=== PATIENT | female | born 1990 | race Caucasian/White ===

== ENCOUNTER → 2023-03-18 | Outpatient (CLI) | payer OTHER ==
[2023-03-18 16:13] LABS: BASO % 0.2 % (0.0-1.0); EOS % 0.5 % (0.0-3.0); HEMATOCRIT 39.3 % (36.0-47.0); HEMOGLOBIN 13.1 g/dl (12.0-15.5); LYMPH # 1.9 10^3/uL (1.5-5.0); LYMPH % 22.8 % (24.0-44.0); MEAN CORPUSCULAR HEMOGLOBIN 30.1 pg (27.0-33.0); MEAN CORPUSCULAR HGB CONC 33.3 g/dl (32.0-36.5); MEAN CORPUSCULAR VOLUME 90.3 fl (80.0-96.0); MONO # 0.5 10^3/uL (0.0-0.8); MONO % 6.1 % (2.0-8.0); NEUTROPHILS # 5.7 10^3/uL (1.5-8.5); PLATELET COUNT, AUTOMATED 310 10^3/uL (150-450); RED BLOOD COUNT 4.35 10^6/uL (4.00-5.40); WHITE BLOOD COUNT 8.2 10^3/uL (4.0-10.0)
[2023-03-18 16:36] LABS: THYROID STIMULATING HORMONE 0.764 uIU/ML (0.55-4.78)
[2023-03-18 16:37] LABS: ALKALINE PHOSPHATASE 81 U/L (46-116); ALT/SGPT 18 U/L (7.0-40); AST/SGOT 14 U/L (<34); BILIRUBIN,TOTAL 0.5 MG/DL (0.3-1.2); BLOOD UREA NITROGEN 13 MG/DL (9-23); CARBON DIOXIDE LEVEL 26 MMOL/L (20-31); CHLORIDE LEVEL 107 MMOL/L (98-107); CHOLESTEROL LEVEL 167 MG/DL (<200); CHOLESTEROL RISK RATIO 3.28 (<5); CREATININE FOR GFR 0.71 MG/DL (0.55-1.30); GLOMERULAR FILTRATION RATE > 60.0 (>60); GLUCOSE, FASTING 68 MG/DL (60-100); HDL CHOLESTEROL 50.8 MG/DL (>40); LDL CHOLESTEROL 88.8 MG/DL (<100); NON-HDL-C 116.2 MG/DL; POTASSIUM SERUM 4.7 MMOL/L (3.5-5.1); SODIUM LEVEL 141 MMOL/L (136-145); TOTAL PROTEIN 7.2 G/DL (5.7-8.2); TRIGLYCERIDES LEVEL 137 MG/DL (<150)
[2023-03-18 17:21] LABS: HEMOGLOBIN A1c 4.4 % (4.0-6.0)
== END ==
LOC: M PLAIMG 12:31
PROVIDERS: ATTEND Nurse Practitioner Adult Health
DX: Z13.220 Encounter for screening for lipoid disorders (principal); Z13.29 Encounter for screening for other suspected endocrine disorder; Z13.0 Encounter for screening for diseases of the blood and blood-forming organs and certain disorders involving the immune mechanism; M77.32 Calcaneal spur, left foot

== ENCOUNTER → 2024-01-14 | Outpatient (CLI) | payer OTHER ==
[2024-01-14 17:56] LABS: HEPATITIS B SURFACE ANTIGEN NEGATIVE (NEGATIVE)
[2024-01-14 18:07] LABS: HIV 1&2 SCREEN NEGATIVE (NEGATIVE)
[2024-01-14 18:15] LABS: HEPATITIS C VIRUS ABY INDEX < 0.02 INDEX (<0.8)
[2024-01-14 18:16] LABS: HEPATITIS B CORE ANTIBODY IGM NEGATIVE (NEGATIVE)
[2024-01-14 20:30] LABS: GC DNA AMPLIFICATION NEGATIVE (NEGATIVE)
[2024-01-18 15:08] LABS: HSV 2 IGG TYPE SPECIFIC < 0.90 index (<0.90)
== END ==
LOC: M LAB 16:24
PROVIDERS: ATTEND Nurse Practitioner Adult Health
DX: Z11.3 Encounter for screening for infections with a predominantly sexual mode of transmission (principal)

== ENCOUNTER 2024-09-23 14:30 | Emergency (ER) | payer OTHER ==
[~2024-09-23] VITALS: Ht 162.6 cm; Wt 71.7 kg
[2024-09-23] MEDS ORDERED: [UNRECOGNIZED DRUG - CODE] (14:39)
[2024-09-23] MEDS ORDERED: VALA500T5 (14:39)
[2024-09-23 15:02] LABS: BASO % 0.4 % (0.0-1.0); EOS % 0.7 % (0.0-3.0); HEMATOCRIT 37.2 % (36.0-47.0); HEMOGLOBIN 12.9 g/dl (12.0-15.5); LYMPH # 1.7 10^3/uL (1.5-5.0); LYMPH % 29.8 % (24.0-44.0); MEAN CORPUSCULAR HEMOGLOBIN 31.5 pg (27.0-33.0); MEAN CORPUSCULAR HGB CONC 34.7 g/dl (32.0-36.5); MONO # 0.3 10^3/uL (0.0-0.8); MONO % 4.8 % (2.0-8.0); NEUTROPHILS # 3.6 10^3/uL (1.5-8.5); NEUTROPHILS % 64.1 % (36.0-66.0); PLATELET COUNT, AUTOMATED 285 10^3/uL (150-450); RED BLOOD COUNT 4.09 10^6/uL (4.00-5.40); WHITE BLOOD COUNT 5.6 10^3/uL (4.0-10.0)
[2024-09-23 15:14] LABS: KETONE, URINE AUTO RFX NEGATIVE (NEGATIVE); LEUKOCYTE ESTERASE UR AUTO RFX NEGATIVE (NEGATIVE); NITRITE, URINE AUTO RFX NEGATIVE (NEGATIVE); RBC, URINE AUTO RFX 0 /HPF (0-3); SQUAM EPITHELIAL CELL UR AURFX 0 /HPF (0-6); WBC, URINE AUTO RFX 0 /HPF (0-3)
[2024-09-23 15:28] LABS: LIPASE 39 U/L (12-53)
[2024-09-23 15:31] LABS: ALBUMIN 3.8 G/DL (3.2-5.2); ALKALINE PHOSPHATASE 75 U/L (35-104); ALT/SGPT 20 U/L (7.0-40); AST/SGOT 11 U/L (<34); BILIRUBIN,DIRECT 0.1 MG/DL (<0.4); BILIRUBIN,TOTAL 0.4 MG/DL (0.3-1.2); CK-MB VALUE MASS < 1.0 NG/ML (<3.6); CPK CREATINE PHOSPHOKINASE 53 U/L (34-145); MB/CK RELATIVE INDEX 1.88 (< OR =4); TOTAL PROTEIN 6.9 G/DL (5.7-8.2)
[2024-09-23] MEDS: LIDOCAINE VISCOUS 2% SOLN 15ML UDC PO STA (17:02)
[2024-09-23] MEDS: MAALOX 30 ML SUSP *UDC PO ONE (17:02)
[2024-09-23] MEDS: diphenhydrAMINE 12.5MG/5ML ELIXIR UDC PO ONE (17:03)
[2024-09-23] MEDS: PANTOPRAZOLE 40MG VIAL IV ONE (18:35)
[2024-09-23] MEDS: SUCRALFATE SUSP 1GM/10ML UD PO ONE (18:35)
[2024-09-23] MEDS: NS (Normal Saline) 0.9% 1,000 ML IV ONE (19:31)
[2024-09-23] MEDS: MORPHINE 2 MG/ML 1ML VIAL IV ONE (19:31)
[2024-09-23] MEDS: ACETAMINOPHEN 500 MG TAB PO ONE (20:00)
[2024-09-23] MEDS ORDERED: PROT1TAB2 PO (20:20)
[2024-09-23] MEDS ORDERED: SUCR1SS PO (20:20)
[2024-09-23 20:58] VITALS: BP 134/70; TEMP 98; O2SAT 100
== END 2024-09-23 21:00 | disposition home or self-care (01) ==
LOC: M ED 14:30
DX: R10.84 Generalized abdominal pain (principal)
CPT/HCPCS: 74018; 80047; 80076; 81001; 82550; 82553; 83690; 84484; 84702; 85025; 93005; 96361; 96374; 99284; J2470

== ENCOUNTER → 2024-09-29 | Outpatient (CLI) | payer OTHER ==
[~2024-09-29] MED LIST: PROT1TAB2 PO; SUCR1SS PO; VALA500T5; [UNRECOGNIZED DRUG - CODE]
== END ==
LOC: M LAB 14:54
PROVIDERS: ATTEND Internal Medicine Gastroenterology
DX: R14.0 Abdominal distension (gaseous) (principal); R14.2 Eructation; R11.0 Nausea; K59.00 Constipation, unspecified; Z83.79 Family history of other diseases of the digestive system; E73.9 Lactose intolerance, unspecified

== ENCOUNTER → 2025-01-26 | Outpatient (CLI) | payer OTHER ==
[2025-01-26 10:36] LABS: BASO # 0.0 10^3/uL (0.0-0.2); BASO % 0.4 % (0.0-1.0); EOS # 0.0 10^3/uL (0.0-0.5); EOS % 1.1 % (0.0-3.0); LYMPH # 1.0 10^3/uL (1.5-5.0); LYMPH % 37.5 % (24.0-44.0); MONO # 0.3 10^3/uL (0.0-0.8); MONO % 9.4 % (2.0-8.0); NEUTROPHILS # 1.4 10^3/uL (1.5-8.5); NEUTROPHILS % 51.6 % (36.0-66.0); PLATELET COUNT, AUTOMATED 217 10^3/uL (150-450)
[2025-01-26 11:07] LABS: ALT/SGPT 18 U/L (7.0-40); AST/SGOT 13 U/L (<34); CALCIUM LEVEL 8.3 MG/DL (8.5-10.1); CARBON DIOXIDE LEVEL 21 MMOL/L (20-31); CHLORIDE LEVEL 111 MMOL/L (98-107); CHOLESTEROL LEVEL 130 MG/DL (<200); CHOLESTEROL RISK RATIO 2.67 (<5); CREATININE FOR GFR 0.79 MG/DL (0.55-1.30); GLOMERULAR FILTRATION RATE > 90.0 (>60); IRON (FE) 45 UG/DL (50-170); LDL CHOLESTEROL 61.4 MG/DL (<100); NON-HDL-C 81.4 MG/DL; PERCENT SATURATION 14.6 % (13.2-45.0); POTASSIUM SERUM 4.2 MMOL/L (3.5-5.1); SODIUM LEVEL 144 MMOL/L (136-145); TRIGLYCERIDES LEVEL 100 MG/DL (<150)
[2025-01-26 11:08] LABS: TOTAL 25(OH) VITAMIN D 53.0 NG/ML (20.0-100.0)
[2025-01-26 11:10] LABS: FREE T4 1.09 NG/DL (0.89-1.76); VITAMIN B12 LEVEL > 2000 PG/ML (211-911)
[2025-01-26 11:51] LABS: ESTIMATED AVERAGE GLUCOSE 88.0 MG/DL (60-110)
[2025-01-30 09:53] LABS: INSULIN TOTAL2 8.9 uIU/mL (<=18.4)
== END ==
LOC: M LAB 09:50
PROVIDERS: ATTEND Nurse Practitioner Adult Health
DX: E66.9 Obesity, unspecified (principal)